=== PATIENT | male | born 1995 ===

== ENCOUNTER 2019-07-23 02:07 | Emergency (ER) | payer SELFPAY ==
[~2019-07-23] VITALS: Ht 190.5 cm; Wt 72.0 kg
[2019-07-23] MEDS ORDERED: ALBUTEROL (0.083%) 2.5MG/3ML NEB HHN STA (02:54)
[2019-07-23] MEDS ORDERED: METHYLPREDNISOLONE SOD SUCC 125 MG/2 ML VIAL IV STA (02:54)
[2019-07-23] MEDS ORDERED: IPRATROPIUM BROMIDE (0.02%) 0.5MG/2.5ML NEB HHN STA (02:54)
[2019-07-23] MEDS ORDERED: SODIUM CHLORIDE 0.9% 1,000 ML IV ONE (03:17)
[2019-07-23] MEDS ORDERED: MAGNESIUM 2 G PREMIX 50 ML IV ONE (03:30)
[2019-07-23 03:37] LABS: HEMOGLOBIN. 17.8 g/dL (14.0-18.0); LYMPHOCYTES % 26.8 % (20.0-50.0); MEAN CORPUSCULAR HEMOGLOBIN 32.5 pg (28.0-32.0); MEAN CORPUSCULAR VOLUME 92.8 fL (80.0-94.0); MEAN PLATELET VOLUME 8.4 fl (7.4-10.4); MONOCYTES % 9.7 % (2.0-8.0); NEUTROPHILS % 56.5 % (40.0-76.0); PLATELET 280 x1000/uL (130-400); RED BLOOD CELL COUNT 5.49 mill/uL (4.7-6.1); RED CELL DISTRIBUTION WIDTH 12.1 % (11.6-14.6)
[2019-07-23 03:46] LABS: CHLORIDE 103 mEq/L (98-107)
[2019-07-23 05:35] VITALS: BP 142/72
== END 2019-07-23 05:37 | disposition home or self-care (01) ==
LOC: ER 02:07
DX: J45.901 Unspecified asthma with (acute) exacerbation (principal); R00.0 Tachycardia, unspecified
CPT/HCPCS: 36415; 80053; 85025; 96365; 96366; 96375; 99285; J2930; J3475; J7030; J7611; Z7610